=== PATIENT | female | born 1950 | race Caucasian/White ===

== ENCOUNTER 2018-03-31 06:45 | Emergency (ER) | payer MEDICARE, SELFPAY ==
[2018-03-31 06:47] VITALS: BP 199/75; PULSE 66; RESP 16; TEMP 36.5; O2SAT 98; BMI 29.8
--- NOTE | 2018-03-31 07:02 | ED.VISSUMM ---
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 Now pain is worse with movements particularly walking and bending. Denies any bulge in the abdomen. She notes radiation to the left leg. She denies any muscle weakness, fevers, rashes, loss of bowel or bladder control. She denies any loss of sensation. History of prior L4 strain/disc bulging noted on MRI she states 2 years ago. She did not require surgery and her symptoms abated with conservative treatment. Physical Examination: Afebrile vital signs stable hypertension Gen: Well-nourished well-developed Head: Normocephalic atraumatic Eyes: Perrl EOMI ENT: TMs clear no rhinorrhea moist mucous membranes Neck: Supple no lymphadenopathy no JVD nontender CVS: Regular rate rhythm no murmurs normal S1-S2 Respiratory: No distress clear to auscultation bilaterally chest nontender Abdomen: Soft tender along the right side rectus abdominis muscle and oblique musculature. No palpable hernia noted. Nondistended normal bowel sounds no masses Back: Left-sided lumbar paraspinal muscle tenderness to palpation and spasm Extremity: Nontender no edema Skin: Normal color no rash Neuro: alert orientated ?3 CN II-XII intact normal strength sensation reflexes gait cerebellar Psych: Normal affect normal mood Emergency Department Course and Treatment: Patient will use abdominal binder for abdominal wall support. I will write for a few Cory and Motrin. Instructions to rest. Follow-up with primary care in 1 week. Return instructions given. Impression: 1. Acute lumbar radiculopathy 2. Acute lumbosacral muscle strain 3. Acute abdominal muscle strain This note was generated with [employer] dictation software. It may contain incorrect words, spelling, and punctuation that were not noted in review of the chart prior to signing ED Disposition - Plan for ED Patient: Disposition: Home or Assisted Living Chief Complaint: Back Instructions: ED Sprain Strain Lumbar, ED Sciatica, ED Strain Abdominal Muscle Prescriptions: Hydrocodone Bitart/Apap 5-325 [Cory 5MG-325MG] 1 tab PO Q6H PRN PRN 3 Days #12 tab PRN Reason: Pain Ibuprofen [Motrin] 800 mg PO TID PRN PRN #20 tab PRN Reason: Pain Referrals: Alex Estrada MD [Primary Care Provider] - 1 Week
[2018-03-31] MEDS: HYDROcodone Bitartrate/Apap 5/325 Tablet PO (07:14)
--- NOTE | 2018-03-31 07:37 | ED.RN ---
ABD BINDER APPLIED.
== END 2018-03-31 07:39 | disposition home or self-care (01) ==
PROVIDERS: Emergency Provider Emergency Medicine; Family Provider Family Medicine; PCP Family Medicine
DX: M54.16 Radiculopathy, lumbar region (principal); S39.011A Strain of muscle, fascia and tendon of abdomen, initial encounter; S39.012A Strain of muscle, fascia and tendon of lower back, initial encounter; X50.9XXA Other and unspecified overexertion or strenuous movements or postures, initial encounter; Y93.F2 Activity, caregiving, lifting; Y92.9 Unspecified place or not applicable; Y99.0 Civilian activity done for income or pay; I10 Essential (primary) hypertension
CPT/HCPCS: 99283